=== PATIENT | female | born 1985 | race Caucasian/White ===

== ENCOUNTER 2017-02-28 12:39 | Outpatient (CLI) | payer OTHER ==
[~2017-02-28] VITALS: Ht 162.6 cm; Wt 79.5 kg
[~2017-02-28 12:39] MED LIST: DOCU-131 PO; IBUP-1222 PO; OXYC-302 PO
[2017-02-28 12:48] VITALS: BP 123/69
[2017-02-28] MEDS ORDERED: PREN1TAB60 PO (13:03)
[2017-02-28 13:26] LABS: PATH.CAST-FLAG NOT PRESENT; SPERM-FLAG NOT PRESENT; SRC-FLAG NOT PRESENT; XTAL-FLAG NOT PRESENT; YLC-FLAG NOT PRESENT
== END 2017-02-28 15:22 | disposition home or self-care (01) ==
LOC: LDOP 12:39
PROVIDERS: ATTEND Obstetrics & Gynecology
DX: O26.892 Other specified pregnancy related conditions, second trimester (principal); R10.9 Unspecified abdominal pain; Z3A.27 27 weeks gestation of pregnancy
CPT/HCPCS: 36415; 59025; 81001; 82731; 87086; 87210; 87808; 99201; G0463

== ENCOUNTER 2017-05-22 07:20 | Inpatient (IN) | payer OTHER ==
[~2017-05-22] VITALS: Ht 162.6 cm; Wt 84.0 kg
[~2017-05-22 07:20] MED LIST changes: +PREN1TAB60 PO
[2017-05-22] MEDS ORDERED: OXYTOCIN 30U/ 0.9% NaCL 500ML 500 ML IV SCH (08:15)
[2017-05-22] MEDS ORDERED: LACTATED RINGERS 1,000 ML IV SCH ×2 (08:15→08:20)
[2017-05-22] MEDS ORDERED: METOCLOPRAMIDE 5 MG/ML, 2ML IV ONE (08:30)
[2017-05-22] MEDS ORDERED: SODIUM CITRATE/CITRIC ACID 30 ML UDC PO ONE (08:30)
[2017-05-22] MEDS ORDERED: PLEASE ENTER HEIGHT AND WEIGHT MC SCH (08:30)
[2017-05-22] MEDS ORDERED: LACTATED RINGERS 1,000 ML IVBOLUS ONE (08:30)
[2017-05-22 08:48] LABS: BASOPHILS # (AUTO) 0.01 x10^3/uL (0-0.1); BASOPHILS % (AUTO) 0 % (0-1); EOSINOPHILS # (AUTO) 0.18 x10^3/uL (0-0.4); EOSINOPHILS % (AUTO) 1 % (1-7); LYMPHOCYTES # (AUTO) 1.36 x10^3/uL (1-3.4); LYMPHOCYTES % (AUTO) 10 % (22-44); MD NO; MEAN CORPUSCULAR HEMOGLOBIN 31.6 pg (27.0-34.8); MEAN CORPUSCULAR HGB CONC 34.3 g/dL (32.4-35.8); MEAN CORPUSCULAR VOLUME 92.1 fL (80-100); MEAN PLATELET VOLUME 7.8 fL (7.4-10.4); MONOCYTES # (AUTO) 0.64 x10^3/uL (0.2-0.8); MONOCYTES % (AUTO) 5 % (2-9); NEUTROPHILS # (AUTO) 11.96 x10^3/uL (1.8-6.8); NEUTROPHILS % (AUTO) 85 % (42-75); PLATELET COUNT 202 x10^3/uL (130-400); RED BLOOD COUNT 4.56 x10^6/uL (3.82-5.3); RED CELL DISTRIBUTION WIDTH 13.5 % (9.6-15.2)
[2017-05-22] MEDS ORDERED: OXYTOCIN 30U/ 0.9% NaCL 500ML 500 ML ONE (09:16)
[2017-05-22] MEDS ORDERED: SODIUM CITRATE/CITRIC ACID 30 ML UDC ONE (09:16)
[2017-05-22] MEDS ORDERED: NEWBORN KIT ONE (09:16)
[2017-05-22] MEDS ORDERED: morphine SULFATE/PF 0.5 MG/ML, 10ML ONE (09:19)
[2017-05-22] MEDS ORDERED: ONDANSETRON 2MG/ML, 2ML ONE (10:21)
[2017-05-22] MEDS ORDERED: OXYTOCIN 10 UNITS/ML, 1ML ONE (10:21)
[2017-05-22] MEDS ORDERED: EPHEDRINE 50 MG/ML, 1ML ONE (10:21)
[2017-05-22] MEDS ORDERED: PHENYLEPHRINE 10 MG/ML ONE (10:21)
[2017-05-22] MEDS ORDERED: WATER-INJECTION,STERILE 10 ML IV ONE (10:21)
[2017-05-22] MEDS ORDERED: CEFAZOLIN 1,000 MG ONE (10:21)
[2017-05-22] MEDS ORDERED: MEPERIDINE/PF 50 MG/ML ONE (10:42)
[2017-05-22] MEDS: OXYTOCIN 30U/ 0.9% NaCL 500ML 500 ML IV SCH ×2 (11:34→21:34)
[2017-05-22] MEDS: LACTATED RINGERS 1,000 ML IV SCH ×4 (11:34→21:34)
[2017-05-22] MEDS ORDERED: ONDANSETRON 2MG/ML, 2ML IV PRN (12:00)
[2017-05-22] MEDS ORDERED: MISOPROSTOL 200 MCG TABLET PR PRN (12:00)
[2017-05-22] MEDS ORDERED: GLYCERIN ADULT SUPP PR PRN (12:00)
[2017-05-22] MEDS ORDERED: METHYLERGONOVINE 0.2 MG/ML IM PRN (12:00)
[2017-05-22] MEDS: PRENATAL VIT/IRON/FA 1 EACH TABLET PO SCH (12:00)
[2017-05-22] MEDS ORDERED: morphine SULFATE 10 MG/ML, 1ML IVPush PRN ×2 (12:00)
[2017-05-22] MEDS ORDERED: OXYcodone/APAP 5/325MG TABLET PO PRN (12:00)
[2017-05-22 14:00] VITALS: BP 115/70
[2017-05-22] MEDS: KETOROLAC 30 MG/1 ML IV SCH ×2 (14:19→20:11)
[2017-05-22] MEDS: OXYcodone IR 5MG TABLET PO PRN ×2 (14:19→20:12)
[2017-05-22] MEDS ORDERED: DIPHENHYDRAMINE 50 MG/ML, 1ML IV PRN (14:30)
[2017-05-22] MEDS ORDERED: KETOROLAC 30 MG/1 ML IVPush SCH (14:30)
[2017-05-22] MEDS ORDERED: ONDANSETRON 2MG/ML, 2ML IVPush PRN (14:30)
[2017-05-22] MEDS ORDERED: NALOXONE 0.4 MG/ML, 1ML IV PRN ×2 (14:30)
[2017-05-22] MEDS ORDERED: HYDROmorphone 1 MG/ML, 1ML IVPush PRN (14:30)
[2017-05-22 16:00] VITALS: BP 104/51
[2017-05-22 19:21] LABS: BASOPHILS # (AUTO) 0.03 x10^3/uL (0-0.1); BASOPHILS % (AUTO) 0 % (0-1); EOSINOPHILS # (AUTO) 0.08 x10^3/uL (0-0.4); EOSINOPHILS % (AUTO) 1 % (1-7); LYMPHOCYTES # (AUTO) 1.67 x10^3/uL (1-3.4); LYMPHOCYTES % (AUTO) 12 % (22-44); MD NO; MEAN CORPUSCULAR HEMOGLOBIN 31.6 pg (27.0-34.8); MEAN CORPUSCULAR HGB CONC 34.3 g/dL (32.4-35.8); MEAN PLATELET VOLUME 7.6 fL (7.4-10.4); MONOCYTES # (AUTO) 0.74 x10^3/uL (0.2-0.8); MONOCYTES % (AUTO) 5 % (2-9); NEUTROPHILS # (AUTO) 11.99 x10^3/uL (1.8-6.8); NEUTROPHILS % (AUTO) 83 % (42-75); PLATELET COUNT 164 x10^3/uL (130-400); RED BLOOD COUNT 4.13 x10^6/uL (3.82-5.3); RED CELL DISTRIBUTION WIDTH 13.5 % (9.6-15.2)
[2017-05-22 19:30] VITALS: BP 105/64
[2017-05-23 00:20] VITALS: BP 96/59
[2017-05-23] MEDS: OXYcodone IR 5MG TABLET PO PRN ×4 (02:12→21:14)
[2017-05-23] MEDS: KETOROLAC 30 MG/1 ML IV SCH ×3 (02:12→14:00)
[2017-05-23] MEDS: LACTATED RINGERS 1,000 ML IV SCH ×2 (03:34→07:34)
[2017-05-23 04:15] VITALS: BP 96/58
[2017-05-23 07:30] VITALS: BP 98/62
[2017-05-23] MEDS: OXYTOCIN 30U/ 0.9% NaCL 500ML 500 ML IV SCH (07:34)
[2017-05-23] MEDS: DOCUSATE 100 MG CAPSULE PO PRN ×2 (09:15→20:11)
[2017-05-23] MEDS: PRENATAL VIT/IRON/FA 1 EACH TABLET PO SCH (09:15)
[2017-05-23] MEDS ORDERED: IBUPROFEN 600 MG TABLET ONE ×2 (15:32→21:25)
[2017-05-23] MEDS: IBUPROFEN 600 MG TABLET PO PRN ×2 (15:35→21:29)
[2017-05-23] MEDS ORDERED: SODIUM CHLORIDE NASAL SPRAY 45ML BOTTLE NAS PRN (16:00)
[2017-05-23 20:00] VITALS: BP 105/63
[2017-05-24 00:13] VITALS: BP 104/63
[2017-05-24] MEDS: OXYcodone IR 5MG TABLET PO PRN ×5 (01:29→21:14)
[2017-05-24] MEDS ORDERED: IBUPROFEN 600 MG TABLET ONE (05:18)
[2017-05-24] MEDS: IBUPROFEN 600 MG TABLET PO PRN ×3 (05:22→17:05)
[2017-05-24 08:17] VITALS: BP 104/63
[2017-05-24] MEDS: PRENATAL VIT/IRON/FA 1 EACH TABLET PO SCH (08:17)
[2017-05-24] MEDS: DOCUSATE 100 MG CAPSULE PO PRN ×2 (08:17→21:14)
[2017-05-24 19:56] VITALS: BP 116/75
[2017-05-25] MEDS: IBUPROFEN 600 MG TABLET PO PRN ×2 (02:01→08:20)
[2017-05-25] MEDS: OXYcodone IR 5MG TABLET PO PRN ×3 (02:02→12:36)
[2017-05-25 08:05] VITALS: BP 102/66
[2017-05-25] MEDS: DOCUSATE 100 MG CAPSULE PO PRN (08:21)
[2017-05-25] MEDS: PRENATAL VIT/IRON/FA 1 EACH TABLET PO SCH (08:21)
[2017-05-25] MEDS ORDERED: IBUP-1222 PO (10:16)
[2017-05-25] MEDS ORDERED: OXYC-302 PO (10:17)
[2017-05-25] MEDS ORDERED: DOCU-131 PO (10:18)
== END 2017-05-25 13:05 | disposition home or self-care (01) | DRG 766 ==
LOC: LDIP 08:11 → 2NW 13:46
PROVIDERS: ADMIT Obstetrics & Gynecology; ATTEND Obstetrics & Gynecology
PROC: 10D00Z1 Extraction of Products of Conception, Low, Open Approach (ICD-10-PCS; principal; 2017-05-22)
DX: O34.211 Maternal care for low transverse scar from previous cesarean delivery (principal); J45.909 Unspecified asthma, uncomplicated; Z37.0 Single live birth; O99.52 Diseases of the respiratory system complicating childbirth; O69.81X0 Labor and delivery complicated by cord around neck, without compression, not applicable or unspecified; Z3A.39 39 weeks gestation of pregnancy
CPT/HCPCS: 36415; 85025; 86850; 86900; J0690; J1885; J2175; J2274; J2405; J2370; J2590; J2765; J7120